=== PATIENT | male | born 1960 | race Caucasian/White ===

== ENCOUNTER → 2017-12-21 | Outpatient (CLI) | payer OTHER ==
[~2017-12-21] MED LIST: ALLEGRA60 MG PO; BACTRIM,SEPT1 TABLET PO; CLEOCIN300 MG PO; GLIPIZIDE10 MG PO; GLUCOPHAGE500 MG PO; HYDROCHLOROTHIA25 MG PO; LO-DOSE ASPIRIN81 M2 PO; NORVASC5 MG PO; PRAVACHOL20 MG PO; PRINIVIL20 MG PO
== END | disposition home or self-care (01) ==
LOC: AMB 12-17 11:00
PROC: 0VJ8XZZ Inspection of Scrotum and Tunica Vaginalis, External Approach (ICD-10-PCS; principal; 2017-12-21)
DX: L73.8 Other specified follicular disorders (principal); Z53.09 Procedure and treatment not carried out because of other contraindication; E11.9 Type 2 diabetes mellitus without complications
CPT/HCPCS: 99211

== ENCOUNTER 2018-01-14 10:28 | Emergency (ER) | payer OTHER ==
[~2018-01-14] VITALS: Ht 193 cm; Wt 141.2 kg
[2018-01-14 11:14] LABS: HEMATOCRIT 47.7 % (38.0-50.0); HEMOGLOBIN 16.5 G/DL (12.5-16.6); MCHC 34.6 G/DL (30.0-36.0); MCV 92.4 FL (86-99); PLATELET COUNT 220 K/uL (156-360); RBC DIS.WIDTH-CV 13.2 % (11.8-14.6); RBC DIS.WIDTH-SD 44.9 % (39-53); RED BLOOD COUNT 5.16 M/uL (4.00-5.50)
[2018-01-14 12:44] LABS: CHLORIDE 99 MEQ/L (99-109); GFR ESTIMATE (CALCULATED) > 59 mL/min/ (58.99-99999); GLUCOSE 367 mg/dL (70-99); POTASSIUM 4.4 MEQ/L (3.7-5.4); SODIUM 136 MEQ/L (136-147); UREA NITROGEN (BUN) 22 mg/dL (9-23)
[2018-01-14] MEDS ORDERED: ANTIVERT25 MG PO (14:28)
[2018-01-14 14:58] VITALS: BP 130/68
== END 2018-01-14 14:59 | disposition home or self-care (01) ==
LOC: EME 10:28
PROVIDERS: Physician Assistant
DX: R42 Dizziness and giddiness (principal); E11.65 Type 2 diabetes mellitus with hyperglycemia; R51 Headache; I10 Essential (primary) hypertension; Z79.84 Long term (current) use of oral hypoglycemic drugs; Z79.82 Long term (current) use of aspirin; F17.200 Nicotine dependence, unspecified, uncomplicated
CPT/HCPCS: 71046; 80048; 82948; 85027; 93005; 99281; 99285; J7030